=== PATIENT | male | born 1970 | race African-American/Black ===

== ENCOUNTER 2016-05-15 08:20 | Emergency (ER) | payer BC ==
[~2016-05-15] VITALS: Ht 188 cm; Wt 131.5 kg
[~2016-05-15 08:20] MED LIST: AMARYL4 MG PO; AMLODIPINE-BEN1 EAC2 PO; AUGMENTIN 875875 M1 PO; BUTALB-APAP-CA1 EACH PO; DELSYM COU30 MG/5 M1 PO; FLEXERIL PO; GLUCOPHAGE1000 MG PO; IBUPROFEN 600600 M1 PO; IBUPROFEN 800800 MG PO; LIPITOR20 MG PO; METFORMIN; METFORMIN HCL500 MG PO; NAPROSYN500 MG PO; NAPROXEN DELAY500 M1 PO; NOHOMEMEDICATIONS; NORCO 5-325 TA1 EACH PO; NYSTATIN15 G1 TOP; NYSTATIN15 GM TP; ONGLYZA5 MG PO; PRAVACHOL 20 MG20 M1 PO; TYLENOL COLD H1 EACH PO
[2016-05-15 08:25] VITALS: BP 133/87
[2016-05-15] MEDS ORDERED: POLYMYXIN B/TMP10 ML OPHTHALMIC (09:21)
== END 2016-05-15 09:32 | disposition home or self-care (01) ==
LOC: ER 08:20
DX: H10.9 Unspecified conjunctivitis (principal); E11.9 Type 2 diabetes mellitus without complications; E78.00 Pure hypercholesterolemia, unspecified

== ENCOUNTER 2016-05-30 19:48 | Emergency (ER) | payer BC ==
[~2016-05-30] VITALS: Ht 188 cm; Wt 130.2 kg
[~2016-05-30 19:48] MED LIST changes: +POLYMYXIN B/TMP10 ML OPHTHALMIC
[2016-05-30] MEDS ORDERED: NORCO 5-325 TA1 EACH PO (20:24)
[2016-05-30] MEDS ORDERED: LIORESAL 10 MG10 MG PO (20:24)
[2016-05-30 20:43] VITALS: BP 148/92
== END 2016-05-30 20:44 | disposition home or self-care (01) ==
LOC: ER 19:48
DX: S46.002A Unspecified injury of muscle(s) and tendon(s) of the rotator cuff of left shoulder, initial encounter (principal); E78.00 Pure hypercholesterolemia, unspecified; E11.9 Type 2 diabetes mellitus without complications; W19.XXXA Unspecified fall, initial encounter; Y93.89 Activity, other specified; Y92.89 Other specified places as the place of occurrence of the external cause; Y99.9 Unspecified external cause status

== ENCOUNTER 2016-09-19 21:39 | Emergency (ER) | payer BC ==
[~2016-09-19] VITALS: Ht 188 cm; Wt 124.3 kg
[~2016-09-19 21:39] MED LIST changes: +LIORESAL 10 MG10 MG PO
[2016-09-19] MEDS ORDERED: NAPROSYN500 MG PO (23:39)
[2016-09-20 00:01] VITALS: BP 121/76
== END 2016-09-20 00:04 | disposition home or self-care (01) ==
LOC: ER 21:39
DX: S93.401A Sprain of unspecified ligament of right ankle, initial encounter (principal); E11.9 Type 2 diabetes mellitus without complications; E78.5 Hyperlipidemia, unspecified; W01.0XXA Fall on same level from slipping, tripping and stumbling without subsequent striking against object, initial encounter; Y93.54 Activity, bowling; Y92.89 Other specified places as the place of occurrence of the external cause; Y99.8 Other external cause status

== ENCOUNTER 2018-01-31 12:05 | Emergency (ER) | payer BC ==
[~2018-01-31] VITALS: Ht 188 cm; Wt 121.6 kg
--- NOTE | ~2018-01-31 | EKG ---
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
[2018-01-31 12:55] LABS: HEMATOCRIT 43.9 % (42.0-52.0); HEMOGLOBIN 14.8 gm/dL (14.0-18.0); MCH 28.1 pg (26.0-34.0); MCHC 33.7 g/dL (28.0-37.0); MCV 83.2 fL (80.0-100.0); RBC 5.27 mil/uL (4.50-6.00); RDW 14.5 % (10.5-14.5); WBC 6.5 thou/uL (4.0-11.0)
[2018-01-31 13:00] LABS: URINE BILIRUBIN NEGATIVE (Negative); URINE BLOOD NEGATIVE (Negative); URINE CLARITY CLEAR; URINE COLOR YELLOW; URINE GLUCOSE-RANDOM* 1+ (Negative); URINE KETONES NEGATIVE (Negative); URINE LEUKOCYTES-REFLEX NEGATIVE (Negative); URINE NITRITE-REFLEX NEGATIVE (Negative); URINE PROTEIN (DIPSTICK) 1+ (Negative); URINE SPECIFIC GRAVITY >= 1.030 (1.005-1.035); URINE UROBILINOGEN 0.2 E.U./dl (0.2-1.0)
[2018-01-31 13:12] LABS: ANION GAP 9 mmol/L (7-16); BUN 10 mg/dL (7-18); CALCIUM 9.2 mg/dL (8.5-10.1); CHLORIDE 101 mmol/L (98-107); CO2 27 mmol/L (21-32); GLUCOSE 287 mg/dL (74-106); POTASSIUM 4.2 mmol/L (3.5-5.1); SODIUM 137 mmol/L (136-145)
[2018-01-31 13:20] LABS: LIPASE 69 U/L (73-393); SGOT 16 U/L (15-37); SGPT 34 U/L (30-65); TOTAL BILIRUBIN 0.4 mg/dL (<0.1-1.0); TOTAL PROTEIN 8.1 g/dL (6.4-8.2); TROPONIN-I <0.06 ng/mL (<0.06)
[2018-01-31] MEDS ORDERED: GLUCOPHAGE XR500 MG PO (13:47)
[2018-01-31] MEDS ORDERED: PEPCID20 MG PO (13:47)
[2018-01-31 13:49] LABS: BACTERIA-REFLEX 1-9 Few /HPF (None Seen); CASTS None Seen /LPF (None Seen); CRYSTALS None Seen /LPF (None Seen); SQUAMOUS None Seen /LPF (0-3); URINE RBC None Seen /HPF (0-2); URINE WBC-REFLEX None Seen /HPF (0-5)
[2018-01-31] MEDS ORDERED: NYSTATIN15 G1 TOP (14:06)
[2018-01-31 14:30] VITALS: BP 134/88
== END 2018-01-31 14:48 | disposition home or self-care (01) ==
LOC: ER 12:05
PROVIDERS: Student in an Organized Health Care Education/Training Program
DX: E11.65 Type 2 diabetes mellitus with hyperglycemia (principal); K21.9 Gastro-esophageal reflux disease without esophagitis; E78.00 Pure hypercholesterolemia, unspecified

== ENCOUNTER 2018-03-25 21:34 | Emergency (ER) | payer BC ==
[~2018-03-25] VITALS: Ht 188 cm; Wt 122.5 kg
[~2018-03-25 21:34] MED LIST changes: +GLUCOPHAGE XR500 MG PO; +PEPCID20 MG PO
[2018-03-25 21:35] VITALS: BP 136/90
[2018-03-25] MEDS ORDERED: NAPROSYN500 MG PO (22:14)
[2018-03-25] MEDS ORDERED: TRAMADOL 50 MG50 MG PO (22:14)
== END 2018-03-25 22:21 | disposition home or self-care (01) ==
LOC: ER 21:34
DX: S62.522A Displaced fracture of distal phalanx of left thumb, initial encounter for closed fracture (principal); E11.9 Type 2 diabetes mellitus without complications; E78.00 Pure hypercholesterolemia, unspecified; X50.9XXA Other and unspecified overexertion or strenuous movements or postures, initial encounter; Y93.89 Activity, other specified; Y92.89 Other specified places as the place of occurrence of the external cause; Y99.0 Civilian activity done for income or pay

== ENCOUNTER 2018-05-03 10:17 | Emergency (ER) | payer BC ==
[~2018-05-03] VITALS: Ht 188 cm; Wt 76.2 kg
[2018-05-03 10:17] VITALS: BP 119/79
[~2018-05-03 10:17] MED LIST changes: +TRAMADOL 50 MG50 MG PO
[2018-05-03] MEDS ORDERED: IBUPROFEN 600600 M1 PO (11:15)
== END 2018-05-03 11:21 | disposition home or self-care (01) ==
LOC: ER 10:17
DX: M77.32 Calcaneal spur, left foot (principal); E11.9 Type 2 diabetes mellitus without complications; E78.00 Pure hypercholesterolemia, unspecified

== ENCOUNTER 2018-08-14 23:21 | Emergency (ER) | payer BC ==
[~2018-08-14] VITALS: Ht 188 cm; Wt 120.2 kg
[2018-08-14 23:55] VITALS: BP 140/89
[2018-08-15] MEDS ORDERED: NAPROSYN500 MG PO (00:25)
[2018-08-15] MEDS ORDERED: ULTRAM 50MG TAB50 MG PO (00:25)
== END 2018-08-15 01:20 | disposition home or self-care (01) ==
LOC: ER 23:21
DX: S46.092A Other injury of muscle(s) and tendon(s) of the rotator cuff of left shoulder, initial encounter (principal); E11.9 Type 2 diabetes mellitus without complications; E78.00 Pure hypercholesterolemia, unspecified; X58.XXXA Exposure to other specified factors, initial encounter; Y93.89 Activity, other specified; Y92.89 Other specified places as the place of occurrence of the external cause; Y99.8 Other external cause status

== ENCOUNTER 2018-11-06 02:09 | Emergency (ER) | payer BC ==
[~2018-11-06] VITALS: Ht 188 cm; Wt 121.6 kg
[~2018-11-06 02:09] MED LIST changes: +ULTRAM 50MG TAB50 MG PO
[2018-11-06 02:13] VITALS: BP 129/92
== END 2018-11-06 03:00 | disposition home or self-care (01) ==
LOC: ER 02:09
DX: M77.32 Calcaneal spur, left foot (principal); E78.00 Pure hypercholesterolemia, unspecified; E11.9 Type 2 diabetes mellitus without complications

== ENCOUNTER 2019-03-29 16:38 | Emergency (ER) | payer BC ==
[~2019-03-29] VITALS: Ht 188 cm; Wt 125.2 kg
[2019-03-29 18:32] LABS: URINE BILIRUBIN NEGATIVE (Negative); URINE BLOOD NEGATIVE (Negative); URINE CLARITY CLEAR; URINE COLOR YELLOW; URINE GLUCOSE-RANDOM* 3+ (Negative); URINE KETONES TRACE (Negative); URINE LEUKOCYTES-REFLEX NEGATIVE (Negative); URINE NITRITE-REFLEX NEGATIVE (Negative); URINE PROTEIN (DIPSTICK) NEGATIVE (Negative); URINE SPECIFIC GRAVITY 1.025 (1.005-1.035); URINE UROBILINOGEN 0.2 E.U./dl (0.2-1.0)
[2019-03-29] MEDS ORDERED: NORCO 5-325 TA1 EAC1 PO (19:20)
[2019-03-29] MEDS ORDERED: MOBIC7.5 MG PO (19:20)
[2019-03-29 19:47] VITALS: BP 110/76
== END 2019-03-29 19:47 | disposition home or self-care (01) ==
LOC: ER 16:38
PROVIDERS: Emergency Medicine
DX: M46.1 Sacroiliitis, not elsewhere classified (principal); E11.9 Type 2 diabetes mellitus without complications; E78.00 Pure hypercholesterolemia, unspecified

== ENCOUNTER 2020-08-13 14:41 | Emergency (ER) | payer BC ==
[~2020-08-13] VITALS: Ht 185.4 cm; Wt 116.1 kg
[~2020-08-13 14:41] MED LIST changes: +MOBIC7.5 MG PO; +NORCO 5-325 TA1 EAC1 PO
[2020-08-13 15:24] LABS: ABSOLUTE NEUTROPHILS 4.5 thou/uL (1.4-8.2); BASOPHILS 0.7 % (0.0-2.0); EOSINOPHILS 3.1 % (0.0-3.0); HEMOGLOBIN 14.2 gm/dL (14.0-18.0); LYMPHOCYTES 28.5 % (24.0-44.0); MCH 27.4 pg (26.0-34.0); MCHC 32.3 g/dL (28.0-37.0); MCV 85.1 fL (80.0-100.0); MONOCYTES 7.7 % (1.0-8.0); PLATELET COUNT 233 thou/uL (150-400); RBC 5.17 mil/uL (4.50-6.00); RDW 16.5 % (10.5-14.5); WBC 7.5 thou/uL (4.0-11.0)
[2020-08-13 15:36] LABS: ANION GAP 10 mmol/L (7-16); BUN 13 mg/dL (7-18); CALCIUM 9.2 mg/dL (8.5-10.1); CHLORIDE 102 mmol/L (98-107); CO2 26 mmol/L (21-32); CREATININE 0.9 mg/dL (0.7-1.3); GLUCOSE 87 mg/dL (74-106); POTASSIUM 4.1 mmol/L (3.5-5.1); SODIUM 138 mmol/L (136-145)
[2020-08-13] MEDS ORDERED: JARDIANCE25 MG PO (15:38)
[2020-08-13] MEDS ORDERED: ROSUVASTATIN CA10 MG PO (15:39)
[2020-08-13] MEDS ORDERED: OZEMPIC1 MG/0.75 SUBQ (15:39)
[2020-08-13] MEDS ORDERED: PRINIVIL20 MG PO (15:39)
[2020-08-13 15:47] LABS: ALBUMIN 4.2 g/dL (3.4-5.0); LIPASE 125 U/L (73-393); SGOT 18 U/L (15-37); SGPT 27 U/L (30-65); TOTAL BILIRUBIN 0.4 mg/dL (0.2-1.0); TOTAL PROTEIN 7.9 g/dL (6.4-8.2); TROPONIN-I <0.06 ng/mL (<0.06)
[2020-08-13] MEDS ORDERED: FLAGYL500 M1 PO (17:09)
[2020-08-13] MEDS ORDERED: NORCO5 PO (17:09)
[2020-08-13] MEDS ORDERED: ZOFRAN ODT4 MG PO (17:09)
[2020-08-13] MEDS ORDERED: CIPRO500 M1 PO (17:09)
[2020-08-13 17:23] VITALS: BP 103/66
--- NOTE | 2020-08-14 07:18 | EKG ---
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: [facility] : 1970 Requested By: Ghazala Weathers Order Number: [id number] MD: Sid eTna Measurements Intervals [place] Rate: 89 P: 44 SD: 159 QRS: 6 QRSD: 88 T: 31 QT: 370 QTc: 451 Interpretive Statements Sinus rhythm ST elevation suggests acute pericarditis Compared to ECG 01/31/2018 12:32:53 ST (T wave) deviation now present Possible ischemia no longer present Electronically Signed On 08-14-2020 7:18:44 CDT by Sid Tena [email or web address] <ELECTRONICALLY SIGNED> By: Sid Tena MD, [facility] 08/14/20 0718 D: [id number] Sid Tena MD, FACC /EPI
== END 2020-08-13 17:23 | disposition home or self-care (01) ==
LOC: ER 14:41
PROVIDERS: Nurse Practitioner Family
DX: K52.9 Noninfective gastroenteritis and colitis, unspecified (principal); E11.9 Type 2 diabetes mellitus without complications; E78.00 Pure hypercholesterolemia, unspecified

== ENCOUNTER 2021-03-17 16:14 | Emergency (ER) | payer BC ==
[~2021-03-17] VITALS: Ht 185.4 cm; Wt 124.3 kg
[~2021-03-17 16:14] MED LIST changes: +CIPRO500 M1 PO; +FLAGYL500 M1 PO; +JARDIANCE25 MG PO; +NORCO5 PO; +OZEMPIC1 MG/0.75 SUBQ; +PRINIVIL20 MG PO; +ROSUVASTATIN CA10 MG PO; +ZOFRAN ODT4 MG PO
[2021-03-17 16:26] VITALS: BP 142/95
== END 2021-03-17 17:43 | disposition home or self-care (01) ==
LOC: ER 16:14
DX: G62.9 Polyneuropathy, unspecified (principal); G56.03 Carpal tunnel syndrome, bilateral upper limbs; E11.9 Type 2 diabetes mellitus without complications; Z79.899 Other long term (current) drug therapy